=== PATIENT | female | born 2005 | race Caucasian/White ===

== ENCOUNTER 2024-05-21 00:46 | Emergency (ER) | payer OTHER, SELFPAY ==
[2024-05-21 00:51] VITALS: BP 124/86; PULSE 100; O2SAT 100; BMI 20.5
[2024-05-21 01:00] VITALS: BP 106/70; PULSE 89; RESP 15; TEMP 36.6; O2SAT 99
--- NOTE | 2024-05-21 01:08 | ED.ALCOHOL ---
HPI - Alcohol General Chief Complaint: ETOH/Substance Use Stated Complaint: ETOH Time Seen by Provider: 05/21/24 01:07 Source: patient and EMS Mode of arrival: EMS Limitations: no limitations History of Present Illness ED Provider: aleks CARRION narrative: Patient came intoxicated from college had 5 6 shots within 1-1/2 arm vomited several times no prior history of abdominal issues Related Data Previous Rx's ?Medication ?Instructions ?Recorded famotidine 20 mg tablet (Pepcid AC 20 mg PO BID #20 tabs 05/21/24 Maximum Strength) Allergies Allergy/AdvReac Type Severity Reaction Status Date / Time Unable to Assess Allergy Verified 05/21/24 00:52 Review of Systems Review of Systems: Yes all other systems are reviewed and are negative Physical Exam ED Vital Signs: Vital Signs - 24 hr 05/21/24 01:00 Temperature 97.9 F Pulse Rate 89 Respiratory Rate 15 Blood Pressure 106/70 Pulse Oximetry 99 Oxygen Delivery Method Room Air BMI result Body Mass Index 20.5 Appearance: Intoxicated. No acute distress. Eyes: PERRLA, No Nystagmus ENT: Pharynx normal. Oral Mucosa moist Neck: Normal inspection. Neck supple. CVS: Normal heart rate and rhythm. Pulses normal. Respiratory: No respiratory distress. Equal air entry bilateral, no wheezing/rales/rhonchi Abdomen: Soft and epigastric tenderness Bowel sounds are present, no mass palpable, no CVA tenderness Skin: Skin warm and dry. Normal skin color. Normal skin turgor. Extremities: No lower extremity edema. No calf tenderness Neuro: Intoxicated Medical Decision Making Medical Decision Making MDM Narrative: Patient with acute alcohol intoxication improved during stay in the ER taking p.o. fluids will send the patient home with staff Lab Data [facility] Lab Attestation statement: I reviewed the patient's lab results. 05/21/24 01:24 05/21/24 01:24 Labs: Lab Results 05/21/24 Range/Units 01:24 WBC 7.2 (4.8-10.8) X10*3/uL RBC 4.19 L (4.20-5.50) X10*6/uL Hgb 12.9 (12.0-16.0) g/dl Hct 35.8 L (37.0-47.0) % MCV 85.4 (80.0-98.0) fL MCH 30.8 (27.0-33.0) pg MCHC 36.0 H (31.0-35.0) g/dl RDW 12.0 (11.0-16.0) % Plt Count 316 (160-400) X10*3/uL MPV 10.4 (9.4-12.3) fL Immature Gran % (Auto) 0.3 (0.0-0.4) % Neut % (Auto) 63.9 (45-73) % Lymph % (Auto) 30.2 (20-40) % [place] % (Auto) 5.5 (2-11) % Eos % (Auto) 0.0 (0-4) % Baso % (Auto) 0.1 (0-2) % Lymph # (Auto) 2.2 (1.2-4.9) X10*3/uL [place] # (Auto) 0.4 (0.1-1.2) X10*3/uL Eos # (Auto) 0.0 (0.0-0.4) X10*3/uL Baso # (Auto) 0.0 (0.0-0.2) X10*3/uL Abs Immat Gran (auto) 0.02 (0.00-0.03) X10*3/uL Absolute Neuts (auto) 4.6 (2.0-8.3) x10*3/uL Absolute Nucleated RBC 0.000 (0.0-0.012) X10*3/uL Nucleated RBC % (auto) 0.0 (0.0-0.2) /100WBC Sodium 142 (135-145) mmol/L Potassium 3.8 (3.3-5.1) mmol/L Chloride 106 (96-108) mmol/L Carbon Dioxide 23 (22-29) mmol/L Anion Gap 17 (12-20) BUN 10 (9-16) mg/dL Creatinine 0.77 (0.5-1.4) mg/dL Estim Creat Clear Calc 84.4 Estimated GFR > 60 Random Glucose 150 H (60-115) mg/dL Calcium 9.4 (8.4-10.2) mg/dL Total Bilirubin 0.3 (0.0-1.0) mg/dL AST 25 (5-31) U/L ALT 12 (0-31) U/L Alkaline Phosphatase 87 (39-117) U/L Total Protein 7.7 (6.5-8.0) g/dL Albumin 4.7 (3.5-5.0) g/dL Lipase 18 (8-78) U/L Ethyl Alcohol 212 mg/dL Medications Administered Discontinued Medications Generic Name Dose Route Start Last Admin Trade Name Alex PRN Reason Stop Dose Admin Famotidine 20 mg 05/21/24 01:07 05/21/24 01:31 Famotidine/Pf 20 Mg/2 Ml Vial IVPUSH 05/21/24 01:08 20 mg ONCE ONE Administration Sodium Chloride 1,000 mls @ 999 mls/hr 05/21/24 01:07 05/21/24 04:06 Ns IV 05/21/24 02:07 Infused .Q1H1M ONE Infusion Ondansetron HCl 4 mg 05/21/24 01:07 05/21/24 01:31 Ondansetron Hcl 4 Mg/2 Ml Vial IVPUSH 05/21/24 01:08 4 mg ONCE ONE Administration Discharge Plan Discharge Clinical Impression: Alcoholic intoxication Patient Disposition: Home, Self-Care Instructions: Alcohol Intoxication (ED) Additional Instructions: Stop drinking alcohol Take Tums/Maalox for gastritis Pepcid 1 tablet twice a day as needed Prescriptions: New famotidine [Pepcid AC Maximum Strength] 20 mg tablet 20 mg PO BID Qty: 20 0RF
--- NOTE | 2024-05-21 01:24 | PC.NURSE ---
mother Olya Yancey called [phone] advised will call back when pt is awake and able to give permission to speak with mom.
[2024-05-21 01:27] LABS: MANUAL DIFF FLAG NO
[2024-05-21 01:29] LABS: Basophils Percent Auto 0.1 % (0-2); Hematocrit 35.8 % (37.0-47.0); Hemoglobin 12.9 g/dl (12.0-16.0); Imm Gran Abs Auto 0.02 X10*3/uL (0.00-0.03); Imm Gran Pct Auto 0.3 % (0.0-0.4); Lymphocytes Absolute Auto 2.2 X10*3/uL (1.2-4.9); Lymphocytes Percent Auto 30.2 % (20-40); Mean Corpuscular Hemoglobin 30.8 pg (27.0-33.0); Mean Corpuscular Volume 85.4 fL (80.0-98.0); Mean Platelet Volume 10.4 fL (9.4-12.3); Monocytes Absolute Auto 0.4 X10*3/uL (0.1-1.2); Monocytes Percent Auto 5.5 % (2-11); Neutrophils Absolute Auto 4.6 x10*3/uL (2.0-8.3); Neutrophils Percent Auto 63.9 % (45-73); Platelet Count 316 X10*3/uL (160-400); Red Blood Count 4.19 X10*6/uL (4.20-5.50); White Blood Count 7.2 X10*3/uL (4.8-10.8)
[2024-05-21] MEDS: 0.9 % Sodium Chloride 1,000 ML 999 ML IV (01:31)
[2024-05-21] MEDS: ondansetron HCL 4 MG/2 ML VIAL IVPUSH (01:31)
[2024-05-21] MEDS: Famotidine/PF 20 MG/2 ML VIAL IVPUSH (01:31)
[2024-05-21 01:43] LABS: Alanine Aminotransferase 12 U/L (0-31); Albumin Level 4.7 g/dL (3.5-5.0); Alkaline Phosphatase 87 U/L (39-117); Anion Gap 17 (12-20); Aspartate Amino Transferase 25 U/L (5-31); Bilirubin Total 0.3 mg/dL (0.0-1.0); Blood Urea Nitrogen 10 mg/dL (9-16); Calcium 9.4 mg/dL (8.4-10.2); Carbon Dioxide 23 mmol/L (22-29); Chloride 106 mmol/L (96-108); Creatinine Clr Calc Pharmacy 84.4; Estimated Glomerular Filt Rate > 60; Ethanol 212 mg/dL; Glucose Random 150 mg/dL (60-115); Lipase 18 U/L (8-78); Potassium 3.8 mmol/L (3.3-5.1); Sodium 142 mmol/L (135-145); Total Protein 7.7 g/dL (6.5-8.0)
--- NOTE | 2024-05-21 04:38 | PC.NURSE ---
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 pt friend Betty who lives on campus with patient and her roommates are taking patient home. criminal researcher and MD aware. Original Note: pt is axox4 speaking full clear sentences. gave consent to speak with mother and mother in agreement with plan of care. pt ambulated with steady gait to bathroom and back. pt requested to leave. MD to bedside for eval and inagreement with d/c. friend from campus with patient. 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
[2024-05-21 04:50] VITALS: BP 113/61; PULSE 93; RESP 18; TEMP 36.6; O2SAT 97
[2024-05-21 04:51] VITALS: BP 113/61; PULSE 93; RESP 18; TEMP 36.6; O2SAT 97
== END 2024-05-21 04:51 | disposition home or self-care (01) ==
PROVIDERS: Emergency Provider Internal Medicine
DX: F10.129 Alcohol abuse with intoxication, unspecified (principal); Y90.7 Blood alcohol level of 200-239 mg/100 ml; R11.0 Nausea; Z51.81 Encounter for therapeutic drug level monitoring; Z79.899 Other long term (current) drug therapy
CPT/HCPCS: 36415; 80053; 80307; 83690; 85025; 96361; 96374; 96375; 99285; J2405